=== PATIENT | female | born 1970 | race Caucasian/White ===

== ENCOUNTER → 2023-06-12 | Outpatient (CLI) | payer OTHER ==
--- NOTE | 2023-06-12 15:57 | US ---
EXAMINATION TYPE: US pelvic complete DATE OF EXAM: 06/12/2023 COMPARISON: None CLINICAL INDICATION: Female, 53 years old with history of N92.0 Menorrhagia; Irregular menses. TECHNIQUE: Transabdominal (TA). Transabdominal sonographic images of the pelvis were acquired. Date of LMP: 05/24/2023, EXAM MEASUREMENTS: Uterus: 10.4 x 5.0 x 4.9 cm Endometrial Stripe: 1.1 cm Right Ovary: 3.2 x 2.6 x 1.6 cm Left Ovary: 4.4 x 2.6 x 1.7 cm 1. Uterus: Slightly prominent in size. Anteverted. Myometrium slightly heterogeneous. 2. Endometrium: wnl 3. Right Ovary: complex area with peripheral vascular flow = 1.4 x 1.5 x 1.4 cm. Suspect a small co rpus luteum. 4. Left Ovary: A cyst measuring 3.1 x 1.7 x 1.3 cm, probable dominant follicle or functional cyst. 5. Bilateral Adnexa: wnl 6. Posterior cul-de-sac: mild free fluid IMPRESSION: 1. Endometrial stripe thickness of 1.1 cm to correspond to the secretory phase of the menstrual cycle . Clinically correlate. 2. Probable 2.1 cm dominant follicle in the left ovary. 3. Probable 1.5 cm corpus luteum in the right ovary. Recommended follow-up ultrasound in 6-8 weeks to ensure involution of both of these ovarian lesions. 4. Mild cul-de-sac free fluid likely physiologic.
== END | disposition home or self-care (01) ==
LOC: RADUSWWP 14:59
PROVIDERS: ATTEND Obstetrics & Gynecology
DX: N60.19 Diffuse cystic mastopathy of unspecified breast (principal); N92.0 Excessive and frequent menstruation with regular cycle; N83.202 Unspecified ovarian cyst, left side
CPT/HCPCS: 76856

== ENCOUNTER → 2023-09-12 | Outpatient (CLI) | payer OTHER ==
--- NOTE | 2023-09-12 10:54 | USB ---
Reason for Exam: Follow-up at short interval from prior study. Patient History: Menarche at age 16. First Full-Term at age 30. Maternal grandmother had breast cancer. Risk Values: Aleida 5 year model risk: 1.0%. NCI Lifetime model risk: 8.9%. Technique: Method: Whole Breast Handheld. Prior Study Comparison: 02/27/2023 Left Diagnostic Mammogram, [facility] . 02/27/2023 Left Diagnostic Mammogram, Unknown. 08/29/2023 Bilateral MG 3D screening mammo w/cad, [facility]. Findings: The whole breast of both breasts, the axilla of both breasts and the retroareolar of both breasts were scanned. No solid or cystic masses are identified. Overall Assessment: Negative, BI-RAD 1 Management: Screening Mammogram of both breasts in 1 year. A clinical breast exam by your physician is recommended on an annual basis and results should be correlated with mammographic findings. This exam should not preclude additional follow-up of suspicious palpable abnormalities. Results were given to the patient verbally at the time of exam. Electronically signed and approved by: Justin Marshall M.D. Radiologis
== END | disposition home or self-care (01) ==
LOC: RADUSWWP 10:04
PROVIDERS: ATTEND Obstetrics & Gynecology
DX: N60.11 Diffuse cystic mastopathy of right breast (principal); N60.12 Diffuse cystic mastopathy of left breast; Z80.3 Family history of malignant neoplasm of breast

== ENCOUNTER → 2024-02-13 | Outpatient (CLI) | payer OTHER ==
--- NOTE | 2024-02-13 11:07 | MR ---
EXAMINATION TYPE: MR cervical spine wo con DATE OF EXAM: 02/13/2024 COMPARISON: CT brain C-spine 05/18/2012 HISTORY: Sprained ligaments and cervical spine, neck pain, headaches, left upper extremity radiculopa thy for 3 weeks, no trauma. TECHNIQUE: Multiplanar, multisequence images of the cervical spine were acquired without contrast. FINDINGS: Alignment: The cervical vertebral bodies have preserved heights. Alignment is within normal limits gi gil patient positioning. Bones: Bone signal is within normal limits. Cord: The spinal cord is unremarkable with regards to their signal intensity and morphology. Discs: Disc height loss at C5-C6. C2-C3: No significant disc pathology. The spinal canal is patent. No neural foraminal stenosis. C3-C4: No significant disc pathology. The spinal canal is patent. No neural foraminal stenosis. C4-C5: No significant disc pathology. The spinal canal is patent. No neural foraminal stenosis. C5-C6: Broad-based disc bulge with minimal effacement of the anterior thecal space. Uncovertebral smith int hypertrophy with mild right neuroforaminal stenosis. The left neural foramen is patent. C6-C7: No significant disc pathology. The spinal canal is patent. No neural foraminal stenosis. C7-T1: No significant disc pathology. The spinal canal is patent. No neural foraminal stenosis. Other: None. IMPRESSION: 1. No evidence for disc herniation or significant spinal canal stenosis. 2. Degenerative disc disease and uncovertebral joint hypertrophy at C5-C6 with mild right neural fora yesenia stenosis. [facility], , 02/13/2024 11:05 AM
== END | disposition home or self-care (01) ==
LOC: RADMRIMAIN 06:22
PROVIDERS: ATTEND Orthopaedic Surgery
DX: S13.4XXD Sprain of ligaments of cervical spine, subsequent encounter
CPT/HCPCS: 72141

== ENCOUNTER → 2024-05-28 | Outpatient (CLI) | payer OTHER ==
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
== END | disposition home or self-care (01) ==
LOC: RADMRIMAIN 18:29
PROVIDERS: ATTEND Orthopaedic Surgery
DX: S69.82XD Other specified injuries of left wrist, hand and finger(s), subsequent encounter (principal); S63.599A Other specified sprain of unspecified wrist, initial encounter

== ENCOUNTER → 2024-09-03 | Outpatient (CLI) | payer OTHER ==
--- NOTE | 2024-09-03 11:01 | MM ---
Reason for Exam: Screening (asymptomatic). Last screening mammogram was performed 12 month(s) ago. Patient History: Menarche at age 16. First Full-Term at age 30. Maternal grandmother had breast cancer. Risk Values: Aleida 5 year model risk: 1.1%. NCI Lifetime model risk: 8.8%. Prior Study Comparison: 02/27/2023 Left Diagnostic Mammogram, [facility] . 02/27/2023 Left Diagnostic Mammogram, Unknown. 08/29/2023 Bilateral MG 3D screening mammo w/cad, [facility]. Tissue Density: The breasts are heterogeneously dense, which may obscure small masses. Findings: Analyzed By CAD. There is no suspicious group of microcalcifications or new suspicious mass in either breast. Overall Assessment: Benign, BI-RAD 2 Management: Screening Mammogram of both breasts in 1 year. . Patient should continue monthly self-breast exams. A clinical breast exam by your physician is recommended on an annual basis. This exam should not preclude additional follow-up of suspicious palpable abnormalities. Note on Aleida scores and lifetime risk: 1. A Aleida score greater than 3% is considered moderate risk. If this is the case, consider specialist referral to assess eligibility for a risk reducing agent. 2. If overall lifetime risk for the development of breast cancer is 20% or higher, the patient may qualify for future screening with alternating mammogram and breast MRI. [facility], , 09/03/2024 10:58 AM. Electronically signed and approved by: Vj Moreno M.D. Radiologis
== END | disposition home or self-care (01) ==
LOC: RADMAMWWP 10:07
PROVIDERS: ATTEND Obstetrics & Gynecology
DX: Z12.31 Encounter for screening mammogram for malignant neoplasm of breast (principal); R92.333 Mammographic heterogeneous density, bilateral breasts; Z80.3 Family history of malignant neoplasm of breast
CPT/HCPCS: 77063; 77067